=== PATIENT | female | born 1970 | race Caucasian/White ===

== ENCOUNTER 2022-09-11 11:55 | Outpatient (CLI) | payer OTHER, SELFPAY ==
--- NOTE | ~2022-09-11 | MM_ITS ---
EXAMINATION: MM screening danni BI w veronica HISTORY: Screening mammogram TECHNIQUE: Craniocaudal and mediolateral oblique 3-D tomosynthesis images were obtained and synthetic 2-D images were generated. CAD analysis was submitted and interpreted. COMPARISON: 07/26/2013 bilateral screening mammogram BREAST PARENCHYMAL COMPOSITION: The breasts are heterogeneously dense, which may obscure small masses . FINDINGS: There are bilateral breast masses. Bilateral diagnostic mammography and breast ultrasound e xamination are recommended. IMPRESSION: 1. Bilateral breast masses 2. Bilateral diagnostic mammography and breast ultrasound examination are recommended BI-RADS Category 0: Incomplete: Needs additional imaging evaluation. Reviewed, dictated and finalized at location A. IMPRESSION: 1. Bilateral breast masses 2. Bilateral diagnostic mammography and breast ultrasound examination are recom mended BI-RADS Category 0: Incomplete: Needs additional imaging evaluation.
--- NOTE | ~2022-09-11 | CT_ITS ---
CT Scan of the Chest without Contrast: Clinical Indication: Lung cancer screening, personal history of nicotine dependence Technique: Contiguous sections were acquired throughout the chest without intravenous contrast. Dose reduction technique was used on this scan by utilizing automated exposure control and iterative recon struction technique. The dose-length product (DLP) was 157.43 mGy-cm. Findings: There is no evidence of any significant mediastinal, hilar or axillary lymphadenopathy. The mediastin al soft tissues appear normal. There is no evidence of pleural or pericardial effusion. There is a 6 mm nodule in the right middle lobe (axial image 77). There is a 4 mm nodule in the right lower lobe (axial image 78). There is mild emphysematous change or interstitial degenerative change at the upper lobes. Images through the upper abdomen reveal no abnormalities. Impression: Lung RADS 3: Probably benign. Six-month follow-up screening CT advised. Reviewed, dictated and finalized at [facility]. Impression: Lung RADS 3: Probably benign. Six-month follow-up screening CT advised.
[2022-09-11 12:17] LABS: Basophils Absolute Auto 0.12 K/mm3 (0.00-0.10); Basophils Percent Auto 1.6 % (0.0-1.0); Eosinophils Absolute Auto 0.34 K/mm3 (0.02-0.50); Eosinophils Percent Auto 4.5 % (1.0-6.0); Hematocrit 47.8 % (35.0-49.0); Hemoglobin 16.5 g/dL (12.0-15.0); Immature Granulocyte Absolute 0.02 K/mm3 (0.00-0.00); Immature Granulocyte Percent A 0.3 % (0.0-0.0); Lymphocytes Absolute Auto 3.15 K/mm3 (1.10-4.50); Lymphocytes Percent Auto 41.7 % (18.0-42.0); Mean Corpuscular HGB Conc 34.5 g/dL (32.0-36.0); Mean Corpuscular Hemoglobin 32.2 pg (27.0-31.0); Mean Corpuscular Volume 93.4 fL (78.0-102.0); Mean Platelet Volume 9.5 fl (9.2-11.8); Monocytes Percent Auto 11.9 % (2.0-11.0); Platelet Count Result 301 K/mm3 (150-420); Red Blood Count 5.12 M/mm3 (4.20-5.40); Red Cell Distribution Width 12.6 % (11.6-14.4); White Blood Count 7.6 K/mm3 (4.8-10.8)
[2022-09-11 12:35] LABS: Appearance Urine Clear (Clear); Color Urine Light Yellow (Yellow); Protein Urine Negative (Negative)
[2022-09-11 12:36] LABS: Bilirubin Urine Negative (Negative); Blood Urine Negative (Negative); Glucose Urine UA Negative (Negative); Ketones Urine Negative (Negative); Leukocyte Esterase Ur Negative (Negative); Nitrate Urine Negative (Negative); Urobilinogen Urine 0.2 mg/dL (0.2-1.0)
[2022-09-11 12:38] LABS: Add Urine Microscopic? NO
[2022-09-11 13:18] LABS: Alanine Aminotransferase 34 U/L (14-59); Albumin Level 3.8 g/dL (3.4-5.0); Alkaline Phosphatase 78 U/L (46-116); Anion Gap 10 mmol/L (8-16); Aspartate Amino Transferase 16 U/L (15-37); Bilirubin,Total 0.4 mg/dL (0.00-1.00); Blood Urea Nitrogen 6 mg/dL (7-18); Carbon Dioxide 27 mmol/L (21-32); Chloride 104 mmol/L (98-108); Cholesterol 238 mg/dL (0-200); Estimated Glomerular Filt Rate > 60; Glucose 91 mg/dL (70-99); HDL Direct 36 mg/dL (40-60); LDL Cholesterol Calculated 145 mg/dL (<130); Osmolality Calculated 289 mOsm/kg (285-295); Potassium 4.3 mmol/L (3.5-5.1); Sodium 141 mmol/L (136-145); Thyroid Stimulating Hormone 1.42 uIU/mL (0.36-3.74); Total Protein 7.8 g/dL (6.4-8.2); Triglycerides 287 mg/dL (0-150)
== END 2022-09-11 11:56 | disposition home or self-care (01) ==
PROVIDERS: PCP Internal Medicine; Visit Provider Internal Medicine
DX: Z00.00 Encounter for general adult medical examination without abnormal findings (principal); M79.89 Other specified soft tissue disorders; Z12.31 Encounter for screening mammogram for malignant neoplasm of breast; Z87.891 Personal history of nicotine dependence; Z12.2 Encounter for screening for malignant neoplasm of respiratory organs; R91.8 Other nonspecific abnormal finding of lung field; R92.8 Other abnormal and inconclusive findings on diagnostic imaging of breast
CPT/HCPCS: 36415; 71271; 77063; 77067; 80053; 80061; 81003; 84443; 85025

== ENCOUNTER 2022-09-18 09:40 | Outpatient (CLI) | payer OTHER, SELFPAY ==
--- NOTE | ~2022-09-18 | US_ITS ---
EXAMINATION: US venous doppler [facility] DATE: 09/18/2022 10:33 INDICATION: Left lower limb swelling. TECHNIQUE: Grayscale ultrasound images without and with compression and Doppler ultrasound images of the bilateral lower extremity veins were obtained. COMPARISON: None. FINDINGS: The visualized portions of right common femoral vein, profunda (deep) femoral vein, femoral vein, pop liteal vein, peroneal veins, posterior tibial veins, and greater saphenous vein outflow are patent. The visualized portions of left common femoral vein, profunda femoral vein, femoral vein, popliteal v ein, peroneal veins, posterior tibial veins, and greater saphenous vein outflow are patent. IMPRESSION: 1. No deep venous thrombosis. Reviewed, dictated and finalized at location A.
== END 2022-09-18 09:41 | disposition home or self-care (01) ==
LOC: CHSIMG 09:41
PROVIDERS: PCP Internal Medicine; Visit Provider Internal Medicine
DX: M79.89 Other specified soft tissue disorders (principal)
CPT/HCPCS: 93970

== ENCOUNTER 2022-09-25 09:49 | Outpatient (CLI) | payer OTHER, SELFPAY ==
--- NOTE | ~2022-09-25 | MMUS_ITS ---
EXAMINATION: MM diagnostic danni BI w veronica, US breast BI limited HISTORY: Bilateral breast masses on screening mammogram TECHNIQUE: Additional 3-D tomosynthesis images of the breasts were performed and synthetic 2-D images were generated. CAD analysis was submitted and interpreted. High resolution limited bilateral breast ultrasound was performed. COMPARISON: 09/11/2022, 07/18/2013 FINDINGS: MAMMOGRAPHIC FINDINGS: Left breast: There is an approximately 1.4 cm oval, obscured, low density mass in the middle third of the inner breast at 9:00 location 7 cm from the nipple. Additional low density masses identified are stable to decreased in size when compared to prior mammograms. Right breast: There is an 8 mm oval, obscured, low density mass in the middle third of the outer crystal st at the 9:00 location. ULTRASOUND: Left breast: There is a 1.4 cm cyst at the 9:00 location 5 cm from the nipple at posterior depth oleksandr esponding to the mammographic finding in question. There is a 4 mm mass with an echogenic center at t he 10:00 location near the nipple with the appearance of an intramammary lymph node. No suspicious cy stic or solid mass is identified. Right breast: There is a 5 mm cyst at the 10:00 location of the breast. IMPRESSION: 1. No mammographic or sonographic evidence of malignancy. 2. Recommend routine screening mammography in one year. BI-RADS Category 2: Benign finding(s). Reviewed, dictated and finalized at location A. IMPRESSION: 1. No mammographic or sonographic evidence of malignancy. 2. Recommend routine screening mammography in one year. BI-RADS Category 2: Benign finding(s).
== END 2022-09-25 09:50 | disposition home or self-care (01) ==
LOC: CHSIMG 09:52
PROVIDERS: PCP Internal Medicine; Visit Provider Internal Medicine
DX: R92.8 Other abnormal and inconclusive findings on diagnostic imaging of breast (principal)
CPT/HCPCS: 76642; 77062; 77066; G0279

== ENCOUNTER 2023-11-23 10:16 | Outpatient (CLI) | payer OTHER, SELFPAY ==
--- NOTE | 2023-11-23 11:00 | NEURO_ITS ---
Impression: # Complains of numbness of hands. # Early, mild, sensory, left Carpal Tunnel Syndrome. # No Ulnar Neuropathy. # Needle Exam/ EMG normal. Nerve Conduction Studies Anti Sensory Summary Table Stim Site NR Peak (ms) P-T Amp (?V) Site1 Site2 Delta-P (ms) Dist (cm) Tylor (m/s) Left Median Anti Sensory (2-3nd Digit) Wrist 2.9 71.9 Wrist 2-3nd Digit 2.9 14.0 48 Wrist 3.0 73.9 Wrist 2-3nd Digit 2.9 14.0 48 Right Median Anti Sensory (2-3nd Digit) Wrist 3.1 17.6 Wrist 2-3nd Digit 3.1 14.0 45 Wrist 2.6 22.3 Wrist 2-3nd Digit 3.1 14.0 45 Left Radial Anti Sensory (Base 1st Digit) Wrist 1.7 42.8 Wrist Base 1st Digit 1.7 0.0 Right Radial Anti Sensory (Base 1st Digit) Wrist 2.3 23.5 Wrist Base 1st Digit 2.3 0.0 Left Ulnar Anti Sensory (5th Digit) Wrist 2.3 51.0 Wrist 5th Digit 2.3 14.0 61 Right Ulnar Anti Sensory (5th Digit) Wrist 2.2 56.4 Wrist 5th Digit 2.2 14.0 64 Motor Summary Table Stim Site NR Onset (ms) O-P Amp (mV) Site1 Site2 Delta-0 (ms) Dist (cm) Tylor (m/s) Left Median Motor (Abd Poll Brev) Wrist 2.6 6.5 Elbow Wrist 4.8 27.0 56 Elbow 7.4 5.1 Right Median Motor (Abd Poll Brev) Wrist 3.1 2.1 Elbow Wrist 5.5 28.0 51 Elbow 8.6 0.6 ELB/ADM Wrist 0.5 0.0 Left Ulnar Motor (Abd Dig Minimi) Wrist 2.0 4.6 A Elbow Wrist 5.0 28.0 56 A Elbow 7.0 4.2 Right Ulnar Motor (Abd Dig Minimi) Wrist 2.0 8.0 A Elbow Wrist 5.4 30.0 56 A Elbow 7.4 6.7 F Wave Studies NR F-Lat (ms) L-R F-Lat (ms) Left Median (Mrkrs) (Abd Poll Brev) 26.33 1.14 Right Median (Mrkrs) (Abd Poll Brev) 27.46 1.14 Left Ulnar (Mrkrs) (Abd Dig Min) 26.02 0.18 Right Ulnar (Mrkrs) (Abd Dig Min) 26.19 0.18 EMG Side Muscle Nerve Root Ins Act Fibs Amp Dur Recrt Comment Right 1stDorInt Ulnar C8-T1 Nml Nml Nml Nml Nml Right Ext Indicis Radial (Post Int) C7-8 Nml Nml Nml Nml Nml Right Ext Digitorum Radial (Post Int) C7-8 Nml Nml Nml Nml Nml Right BrachioRad Radial C5-6 Nml Nml Nml Nml Nml Right PronatorTeres Median C6-7 Nml Nml Nml Nml Nml Right Abd Poll Brev Median C8-T1 Nml Nml Nml Nml Nml Right ABD Dig Min Ulnar C8-T1 Nml Nml Nml Nml Nml Left 1stDorInt Ulnar C8-T1 Nml Nml Nml Nml Nml Left Ext Indicis Radial (Post Int) C7-8 Nml Nml Nml Nml Nml Left Ext Digitorum Radial (Post Int) C7-8 Nml Nml Nml Nml Nml Left BrachioRad Radial C5-6 Nml Nml Nml Nml Nml Left PronatorTeres Median C6-7 Nml Nml Nml Nml Nml Left Abd Poll Brev Median C8-T1 Nml Nml Nml Nml Nml Left ABD Dig Min Ulnar C8-T1 Nml Nml Nml Nml Nml MTDD
== END 2023-11-23 10:17 | disposition home or self-care (01) ==
LOC: ANHNEURO 10:21
PROVIDERS: PCP Internal Medicine; Visit Provider Plastic Surgery
DX: G56.02 Carpal tunnel syndrome, left upper limb (principal)
CPT/HCPCS: 95886; 95911

== ENCOUNTER 2024-06-26 14:48 | Outpatient (CLI) | payer OTHER, SELFPAY ==
--- NOTE | ~2024-06-26 | XR_ITS ---
AP view of the pelvis and AP and lateral views of the bilateral hips Clinical history: Pain Findings: No acute fracture or dislocation is seen. Osseous alignment is anatomic. Bilateral hip and SI joint spaces are preserved. Soft tissues are unremarkable. Impression: No significant abnormality is seen. Reviewed, dictated and finalized at location . Impression: No significant abnormality is seen.
[2024-06-26 15:15] LABS: Hematocrit 43.9 % (35.0-49.0); Mean Corpuscular HGB Conc 34.2 g/dL (32-36); Mean Corpuscular Hemoglobin 30.2 pg (27.0-31.0); Mean Corpuscular Volume 88.3 fL (78.0-102.0); Mean Platelet Volume 9.3 fl (9.2-11.8); Platelet Count Result 325 K/mm3 (150-420); Red Blood Count 4.97 M/mm3 (4.20-5.40); Red Cell Distribution Width 12.3 % (11.6-14.4); White Blood Count 7.7 K/mm3 (4.8-10.8)
[2024-06-26 15:17] LABS: Add Urine Microscopic? YES; Appearance Urine Clear (Clear); Bilirubin Urine Negative (Negative); Blood Urine Negative (Negative); Color Urine Yellow (Yellow); Glucose Urine UA Negative (Negative); Ketones Urine Negative (Negative); Leukocyte Esterase Ur Trace (Negative); Nitrate Urine Negative (Negative); Protein Urine Negative (Negative); Specific Grav Ur 1.015 (1.010-1.020); Urobilinogen Urine 0.2 mg/dL (0.2-1.0)
[2024-06-26 15:29] LABS: D Dimer 0.22 mg/L (0.19-0.50)
[2024-06-26 15:33] LABS: Bacteria Urine 1+ /hpf; RBC Urine 0-2 /hpf (0-2); Squamous Epithelial Cell Urine Many /hpf (Few); WBC Urine 0-3 /hpf (0-3)
[2024-06-26 15:58] LABS: Alanine Aminotransferase 43 U/L (14-59); Albumin Level 4.1 g/dL (3.4-5.0); Alkaline Phosphatase 87 U/L (46-116); Anion Gap 10 mmol/L (4-12); Aspartate Amino Transferase 24 U/L (15-37); Bilirubin,Total 0.5 mg/dL (0.00-1.00); Blood Urea Nitrogen 8 mg/dL (7-18); Calcium 9.1 mg/dL (8.5-10.1); Carbon Dioxide 26 mmol/L (21-32); Chloride 105 mmol/L (98-108); Creatine Kinase 225 U/L (26-192); Estimated Glomerular Filt Rate > 60; Glucose 106 mg/dL (70-99); Osmolality Calculated 290 mOsm/kg (285-295); Potassium 4.2 mmol/L (3.5-5.1); Sodium 141 mmol/L (136-145); Thyroid Stimulating Hormone 1.24 uIU/mL (0.36-3.74); Total Protein 7.6 g/dL (6.4-8.2)
[2024-06-26 16:04] LABS: CRP < 0.5 mg/dL (0.0-0.9)
--- OUTSIDE RECORDS SUMMARY | 2024-06-26 16:58 | XMS_ITS | Encounter Summary ---
Author Organization [facility] Address [address] [place] [address] Care Team Providers Care Project Admin Name Role Phone New Referring, Provider Primary Care Provider Un available Shane Roa MD Primary Care Provider [phone] Encounter Details Date Type Department Care Team (Late st Contact Info) Description 08/06/2018 Abstract [facility] CONVERSION [address] [place] [address] , Generic ConversionMD Social History Tobacco Use Types Packs/Day Years Used Date Smoking Tobacco: Never Assessed Comments No Sex and Gender Information Value Date Recorded Sex Assigned at Not on file Legal Sex Female 7:53 PM CDT Gender Identity Not on file Sexual Orientation Not on file documented as of this encounter Plan of Treatment Not on file documented as of this encounter Visit Diagnoses Not on filedocumented in this encounter Additional Health Concerns Infection Onset Date Last Indicated Resolved Time COVID-19 Rule Out 02/21/2020 02/21/2020 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
--- OUTSIDE RECORDS SUMMARY | 2024-06-26 16:58 | XMS_ITS | Encounter Summary ---
Author Organization [facility] Address [address] [place] [address] Care Team Providers Care Nanotechnology Technician Name Role Phone New Referring, Provider Primary Care Provider Un available Shane Roa MD Primary Care Provider [phone] Encounter Details Date Type Department Care Team (Late st Contact Info) Description 05/15/2017 Abstract [facility] CONVERSION [address] [place] [address] , Generic ConversionMD Social History Tobacco Use Types Packs/Day Years Used Date Smoking Tobacco: Never Assessed Comments Unknown Sex and Gender Information Value Date Recorded [...] Rule Out 02/21/2020 02/21/2020 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
--- OUTSIDE RECORDS SUMMARY | 2024-06-26 16:58 | XMS_ITS | Clinical Summary ---
Author Organization [facility] Address [address] [place] [address] Care Team Providers Care Shopper Insights Manager Name Role Phone Shane Roa MD Primary Care Provider [phone] Allergies Active Allergy Reactions Criticality Noted Date Comments Amoxicillin-Pot Clavulanate Rash Low 02/26/20 18 Medications montelukast 10 MG tabletIndicatio ns:breathing Take 10 mg by mouth nightly at bedtime. Indications: breathing 5 Active cetirizine 10 MG tabletIndicatio ns:Allergic Rhinitis Take 10 mg by mouth daily. Indications: Allergic Rhinitis Active sertraline 100 MG tabletIndicatio ns:Anxiety Take 100 mg by mouth daily. Indications: Feeling Anxious Active clonazePAM 0.5 MG tablet Take 0.5 mg by mouth 2 (two) times daily as needed for Anxiety. Active vitamin D3, cholecalciferol , (VITAMIN D-3) 10 MCG (400 UNIT) tabletIndicatio ns:Nutritional Support Take 400 Units by mouth daily. Indications: Nutritional Support Active Family History Medical History Relation Comments Breast Cancer Maternal Aunt age unknown Breast Cancer Maternal Grandmother age unknown Diabetes Mother Heart Disease Mother Relation Status Comments Maternal Aunt Maternal Grandmother Mother Alive Social History Tobacco Use Types Packs/Day Years Used Date Smoking Tobacco: Every Day Cigarettes Smokeless Tobacco: Never Alcohol Use Standard Drinks/Week Comments Yes 0 (1 standard drink = 0.6 oz pur e alcohol) rare glass of wine Comments No Sex and Gender Information Value Date Recorded Sex Assigned at Not on file Legal Sex Female 7:53 PM CDT Gender Identity Not on file Sexual Orientation Not on file Last Filed Vital Signs Vital Sign Reading Time Taken Comments Blood Pressure 132/76 07/12/2020 9:47 AM CDT Pulse 87 07/12/2020 9:47 AM CDT Temperature 36 C (96.8 F) 07/12/2020 8:12 AM CDT Respiratory Rate 18 07/12/2020 9:47 AM CDT Oxygen Saturation 97% 07/12/2020 9:47 AM CDT Inhaled Oxygen Concentration - - Weight 88.5 kg (195 lb) 07/08/2020 12:58 PM CDT Height 157.5 cm (5' 2 ) 07/08/2020 12:58 PM CDT Body Mass Index 35.67 07/08/2020 12:58 PM CDT Plan of Treatment Health Maintenance Due Date Last Done Comments Cervical Cancer Screening Pa p Smear (Age 30 to 64) Every 3 Years 1970 Colorectal Cancer Screening Colonoscopy (10 Years) 1970 Annual Physical 1973 Hepatitis C 1988 Hepatitis B Vaccines (1 of 3 - 19+ 3-dose series) 1989 Pneumococcal Vaccine: 50+ Ye ars (1 of 2 - PCV) 1989 Cervical Cancer Screening Pa p with HPV Testing (Age 30 to 64) Every 5 Years 2000 Cervical Cancer Screening with HPV 2000 Zoster Vaccines (1 of 2) 2020 Mammogram Screening 04/06/2021 04/06/2019 COVID-19 Vaccine ( - 2023-2 5 season) 2023 DTaP, Tdap and Td Vaccines ( 2 - Td or Tdap) 06/03/2025 06/04/2015 Meningococcal B Vaccine Aged Out No l onger eligible based on patient's age to complete this topic Meningococcal Vaccine Aged Out No patricia eduin eligible based on patient's age to complete this topic RSV Immunizations Under 20 Months Aged Out No longer eligible based on patient's age to complete this topic Procedures Procedure Name Priority Date/Time Associated Diagnosis Comments MG DIAGNOSTIC SAMMY DIGI Routine 04/06/2019 8:32 AM TRACKWALKER Nipple discharge Abnormal breast exam from Last 3 Months or Most Recently Relevant to Health Maintenance Results * MG DIAGNOSTIC SAMMY DIGI (04/06/2019 8:32 AM TRACKWALKER) Anatomical Region Laterality Modality Breast Bilateral Mammography, Rad iographic Imaging 04/06/2019 9:05 AM TRACKWALKER Impressions 04/06/2019 9:12 AM TRACKWALKER IMPRESSION: 1. Moderately dense breasts with no mammographically suspicious change since 07/26/2013. 2. No sonographically discrete or suspicious abnormality identified within the region of interest on the right. 3. Follow-up as described. Recommendation: 1: Routine screening mammogram Bilateral in 1 Year Overall assessment: ACR BI-RADS Category 2 - Benign. Return for Routine Follow-Up: Yes Interpreted By: Alton Mathews, 04/06/2019 9:05 AM Narrative 04/06/2019 9:12 AM TRACKWALKER Examination: Bilateral digital diagnostic mammogram with CAD. [id number] Clinical history: Intermittent clear to whitish nipple discharge on the right. Routine screening on the left. Comparison: 07/26/2013. Technique: Bilateral digital mammograms including spot compression imaging on the right.. The exam was interpreted with the use of a computer-aided detection (CAD) system. Additional 3-D Tomosynthesis images were acquired in the CC and MLO projections. Tissue density: The breast tissue is heterogeneously dense. Findings: There has been no suspicious change. The breasts again demonstrate mixed fat and moderately dense fibroglandular tissue. Benign-appearing calcification noted. No suspicious mass, microcalcification or area of architectural distortion can be identified including spot compression imaging of the subareolar region on the right. Examination: Right breast ultrasound. Technique: Grayscale images. Findings: Survey of the subareolar/periareolar region was performed encompassing the region of interest. This fails to demonstrate any discrete solid or cystic mass or abnormal appearing duct. Lamont appearing tissue architecture is demonstrated. Physical exam surveillance is advised. Should the discharge become bloody and freely expressible, consideration could be given to galactography or MRI. From a mammographic standpoint, routine follow-up in one year would seem adequate. These findings were discussed with the patient. Shane Roa MD MAMMO Final Result from Last 3 Months or Most Recently Relevant to Health Maintenance Insurance [employer] [facility] on file Advance Directives Documents on File Type Date Recorded Patient Numerical Analysis Group Manager Expl anation Legal Documents 11/28/2020 10:43 AM RECVD & CMPLTD ATTY REQ. FOR HB BILLS FOR [facility] FOR [facility] Care Teams Shopper Insights Manager Relationship Specialty Start Date End Date Shane Roa MD [address] [place] [address] PCP - General INTERNAL MEDICINE 02/21/20
--- OUTSIDE RECORDS SUMMARY | 2024-06-26 16:58 | XMS_ITS | Clinical Summary ---
Author Organization [facility] [employer] Address [address] [place] [address] Care Team Providers Care Game Author Name Role Phone Shane Roa MD Primary Care Provider [phone] Source Comments [facility] [employer],non-owned Affiliates and Associated Physician Practices is amultiple site organization consisting of ambulatory clinics and hospital sitesin [place], [place], [place] and [place]. This disclosure is being madepursuant to the Care Everywhere program and may not contain all information available regarding this patient. Last updated 17.[facility] [employer] Allergies Active Allergy Reactions Criticality Noted Date Comments Augmentin Rash Medium 02/18/2023 Medications * Be aware that medications may not be up to date on this document. Alwaysverify current medications with the patient. sertraline (Zoloft) 100 MG tablet Take 1 (one) tablet by mouth once daily Active montelukast (Singulair) 10 MG tablet Take 1 (one) tablet by mouth at bedtime Active vitamin D3 (Cholecalciferol) 25 MCG (1000 UNITS) tablet Take 2 (two) tablets by mouth once daily Active cetirizine (ZyrTEC) 10 MG chew tablet Take 1 (one) tablet by mouth once daily Active aspirin (Aspirin) 81 MG chew tablet Take 1 (one) tablet by mouth once daily 30 tablet 3 Active clopidogrel (Plavix) 75 MG tablet Take 1 (one) tablet by mouth once daily 90 tablet 3 5 Active metoprolol succinate XL 24hr (Toprol XL) 25 MG tablet Take 1 (one) tablet by mouth once daily 90 tablet 3 5 Active losartan (Cozaar) 50 MG tabletIndications :Essential hypertension Take 1 (one) tablet by mouth once daily 90 tablet 1 5 Active rosuvastatin (Crestor) 20 MG tablet Take 1 (one) tablet by mouth once daily 90 tablet 3 5 Active Active Problems Problem Noted Date Diagnosed Date DAHIANA (obstructive sleep apnea) 04/27/2023 Assessment & Plan (04/27/2023 1:58 PM FIXED ROUTE BUS OPERATOR): New Reviewed patient's sleep study results with her and her . Patient needs to choose DME company to fax order to. Strongly advised CPAP compliance. Essential hypertension 04/27/2023 Assessment & Plan (04/27/2023 1:57 PM FIXED ROUTE BUS OPERATOR): Improving Continue Losartan 50 mg daily Continue Toprol XL 25 mg daily Continue Low Sodium Diet Palpitations 04/27/2023 Assessment & Plan (04/27/2023 1:57 PM FIXED ROUTE BUS OPERATOR): Improving she is having less episodes. Reviewed Holter Monitor Results with patient. Could increase Toprol if the future if BP can tolerate to assist with symptoms. Tobacco use disorder 02/18/2023 Enlarged thyroid gland 02/18/2023 NSTEMI (non-ST elevated myocardial infarction) 1 04/20/2022 Assessment & Plan (04/27/2023 1:56 PM FIXED ROUTE BUS OPERATOR): Stable no chest pain Continue ASA 81 mg daily Continue Plavix 75 mg daily Continue Crestor 20 mg daily Social History Tobacco Use Types Packs/Day Years Used Date Smoking Tobacco: Former Cigarettes Smokeless Tobacco: Never Tobacco Cessation:Counseling Given: Not Answered Alcohol Use Standard Drinks/Week Comments Never 0 (1 standard drink = 0.6 oz pur e alcohol) AUDIT-C Answer Date Recorded Q1: How often do you have a drink containing alcohol? Never 02/17/2023 Q2: How many drinks containi ng alcohol do you have on a typical day when you are drinking? Patient does not drink Q3: How often do you have si x or more drinks on one occasion? Never 02/17/2023 Overall Financial Resource Strain (CARDIA) Answe r Date Recorded How hard is it for you to pa y for the very basics like food, housing, medical care, and heating? Not hard at all 02/17/2023 [facility] of Occupat ional Health - Occupational Stress Questionnaire Answer Date Recorded Do you feel stress - tense, restless, nervous, or anxious, or unable to sleep at night because your mind is troubled all the time - these days? Not at all 02/17/2023 Hunger Vital Sign Answer Date Recorded Within the past 12 months, y ou worried that your food would run out before you got the money to buy more. Never true 02/18/20 23 Within the past 12 months, t he food you bought just didn't last and you didn't have money to get more. Never true 02/17/2023 PRAPARE - Transportation Answer Date Re corded In the past 12 months, has l ack of transportation kept you from medical appointments or from getting medications? No 01/30 In the past 12 months, has l ack of transportation kept you from meetings, work, or from getting things needed for daily living? No 02/17/2023 Housing Stability Vital Sign Answer Rodrigo e Recorded In the last 12 months, was t here a time when you were not able to pay the mortgage or rent on time? No 02/17/2023 In the last 12 months, how many places have you lived? 1 02/17/2023 In the last 12 months, was t here a time when you did not have a steady place to sleep or slept in a retirement (including now)? No 02/17/2023 Comments Unknown Sex and Gender Information Value Date Recorded Sex Assigned at Not on file Legal Sex Female 1:16 PM FIXED ROUTE BUS OPERATOR Gender Identity Not on file Sexual Orientation Not on file Last Filed Vital Signs Vital Sign Reading Time Taken Comments Blood Pressure 130/73 12/28/2023 3:07 PM CDT Pulse 81 12/28/2023 3:07 PM CDT Temperature 35.9 C (96.7 F) 12/28/2023 3:07 PM CDT Respiratory Rate 20 02/19/2023 8:26 AM FIXED ROUTE BUS OPERATOR Oxygen Saturation 96% 12/28/2023 3:07 PM CDT Inhaled Oxygen Concentration - - Weight 106.1 kg (234 lb) 12/28/2023 3:07 PM CDT Height 157.5 cm (5' 2 ) 12/28/2023 3:07 PM CDT Body Mass Index 42.8 12/28/2023 3:07 PM CDT Plan of Treatment Upcoming Encounters Date Type Department Care Team (Late st Contact Info) Description 07/04/2024 2:00 PM CDT Office Visit [facility] [address], [address] [place] [id number] Kassie Reyes MD [address] [place] [address] Health Maintenance Due Date Last Done Comments COLOGUARD (AGES 45-75) - COLON CA SCREENING 1970 COLON MONITORING 1970 COLONOSCOPY - COLON CA SCREENING 1970 CT COLONOGRAPHY - COLON CA SCREENING 1970 Colorectal Cancer Screening 1970 FIT - COLON CA SCREENING 1970 FLEX SIG - COLON CA SCREENING 1970 PAP SMEAR 1970 HIV SCREENING 1985 HEPATITIS C SCREENING 04/03/1988 DTAP/TDAP/TD VACCINES (1 - Tdap) 1989 HEPATITIS B VACCINE (1 of 3 - 19+ 3-dose series) 1989 PNEUMOCOCCAL VACCINE 50+ (1 of 1 - PCV) 2020 ZOSTER VACCINE (1 of 2) 2020 MAMMOGRAM 04/06/2021 04/06/2019, 04/06/2019 COVID-19 VACCINE (1 - season) 2023 DEPRESSION SCREENING 03/01/2024 INFLUENZA VACCINE (Season Ended) 2024 SCREENING FOR DIABETES 02/19/2026 3, 02/18/2023, 02/17/2023, Additional history exists HIB VACCINE Aged Out No longer eligi ble based on patient's age to complete this topic HPV VACCINE Aged Out No longer eligi ble based on patient's age to complete this topic MENINGOCOCCAL (Group B) VACCINE SHARED DECISION-MAKING Aged Out No longer eligible based on patient's age to complete this topic MENINGOCOCCAL GROUPS A/C/Y/W VACCINE Aged Out No longer eligible based on patient's age to complete this topic Procedures Procedure Name Priority Date/Time Associated Diagnosis Comments BASIC METABOLIC PANEL (CALCIUM TOTAL) AM Draw 02/19/2023 4:38 AM FIXED ROUTE BUS OPERATOR from Last 3 Months or Most Recently Relevant to Health Maintenance Results * (ABNORMAL) BASIC METABOLIC PANEL (CALCIUM TOTAL) (02/19/2023 4:38 AM FIXED ROUTE BUS OPERATOR) [facility] Glucose 99 70 - 105 mg/dL 02/19/2023 5:08 AM [facility] Sodium 138 136 - 145 mmol/L 02/19/2023 5:08 AM [facility] Potassium 3.6 3.5 - 5.1 mmol/L 02/19/2023 5:08 AM [facility] Chloride 109(H) 98 - 107 mmol/L 02/19/2023 5:08 AM [facility] CO2 19(L) 22 - 29 mmol/L 02/19/2023 5:08 AM [facility] Calcium 8.7 8.4 - 10.4 mg/dL 02/19/2023 5:08 AM [facility] Anion Gap 10 6 - 16 mmol/L 02/19/2023 5:08 AM [facility] BUN 7 7 - 26 mg/dL 02/19/2023 5:08 AM [facility] Creatinine 0.69 0.57 - 1.11 mg/dL 02/19/2023 5:08 AM [facility] eGFR by CKD-EPI >90 >=90 mL/min/1.7 3 m2 02/19/2023 5:08 AM [facility] Blood BLOOD SPECIMEN / Unknown Lab Venipuncture / Unknown 02/19/2023 4:38 AM FIXED ROUTE BUS OPERATOR 02/19/2023 4:49 AM [facility] Sandy Lambert MD LAB - CHEMISTRY ORDERABLES Fin al Result [facility] [address] [place] [address] from Last 3 Months or Most Recently Relevant to Health Maintenance Insurance [employer] Advance Directives * Full Code (Latest Code Status on File) Date Activated Date Inactivated Comments 02/18/2023 11:12 AM 02/19/2023 12:35 PM * Full Code Date Activated Date Inactivated Comments 02/17/2023 7:46 PM 02/18/2023 11:12 AM Care Teams Game Author Relationship Specialty Start Date End Date Shane Roa MD [address] [place] [address] PCP - General Internal Medicine 02/18/23
--- OUTSIDE RECORDS SUMMARY | 2024-06-26 16:58 | XMS_ITS | Encounter Summary ---
Author Organization [facility] Address [address] [place] [address] Care Team Providers Care Property Site Manager Name Role Phone New Referring, Provider Primary Care Provider Un available Shane Roa MD Primary Care Provider [phone] Encounter Details Date Type Department Care Team (Late st Contact Info) Description 06/15/2019 [employer] Message [facility] Patient Accounts [address] [place] [address] [facility], [facility] Provider Notice regarding your past due balance Social History Tobacco Use Types Packs/Day Years [...] Rule Out 02/21/2020 02/21/2020 02/21/2020 1:41 PM WIRELESS NETWORK ENGINEER COVID-19 Rule Out 07/09/2020 07/09/2020 07/09/2020 7:41 PM CDT documented as of this encounter Care Teams Property Site Manager Relationship Specialty Start Date End Date New Referring, Provider PCP - General UNKNOWN PHYSICIAN SPECIALTY 02/25/18 02/20/20 Shane Roa MD [address] [place] [address] PCP - General INTERNAL MEDICINE 02/21/20 documented as of this encounter
== END 2024-06-26 14:49 | disposition home or self-care (01) ==
LOC: CHSLAB 14:50
PROVIDERS: PCP Internal Medicine; Visit Provider Internal Medicine
DX: M79.89 Other specified soft tissue disorders (principal); R10.30 Lower abdominal pain, unspecified
CPT/HCPCS: 36415; 73521; 80053; 81001; 82550; 84443; 85027; 85380; 86140

== ENCOUNTER 2024-07-07 14:45 | Outpatient (CLI) | payer OTHER, SELFPAY ==
--- OUTSIDE RECORDS SUMMARY | 2024-07-07 14:50 | XMS_ITS | Encounter Summary ---
Author Organization [facility] Address [address] [place] [id number] Care Team Providers Care Laminating Machine Operator Name Role Phone New Referring, Provider Primary Care Provider Un available Shane Roa MD Primary Care Provider Encounter Details Date Type Department Care Team (Late st Contact Info) Description 08/06/2018 Abstract [facility] CONVERSION [address] [place] [address] , Generic ConversionMD Social History Tobacco Use [...] Rule Out 02/21/2020 02/21/2020 02/21/2020 1:41 PM NAIL TECHNICIAN COVID-19 Rule Out 07/09/2020 07/09/2020 07/09/2020 7:41 PM CDT documented as of this encounter Care Teams Laminating Machine Operator Relationship Specialty Start Date End Date New Referring, Provider PCP - General UNKNOWN PHYSICIAN SPECIALTY 02/25/18 02/20/20 Shane Roa MD [address] [place] [address] PCP - General INTERNAL MEDICINE 02/21/20 documented as of this encounter
--- OUTSIDE RECORDS SUMMARY | 2024-07-07 14:50 | XMS_ITS | Clinical Summary ---
Author Organization [facility] Address [address] [place] [address] Care Team Providers Care Credit Clerk Name Role Phone Shane Roa MD Primary Care Provider [phone] [facility],non-owned Affiliates and Associated Physician Practices is amultiple site organization consisting of ambulatory clinics and hospital sitesin [place], [place], [place] and [place]. This disclosure is being madepursuant to the Care Everywhere program and may not contain all information available regarding this patient. Last updated 17.[facility] Allergies Active Allergy Reactions Criticality Noted Date [...] 04/27/2023 Assessment & Plan (04/27/2023 1:[address] TECHNICIAN): New Reviewed patient's sleep study results with her and her . Patient needs to choose DME company to fax order to. Strongly advised CPAP compliance. Essential hypertension 04/27/2023 Assessment & Plan (04/27/2023 1:[address] TECHNICIAN): Improving Continue Losartan 50 mg daily Continue Toprol XL 25 mg daily Continue Low Sodium Diet Palpitations 04/27/2023 Assessment & Plan (04/27/2023 1:[address] TECHNICIAN): Improving she is having less episodes. Reviewed Holter Monitor Results with patient. Could increase Toprol if the future if BP can tolerate to assist with symptoms. Tobacco use disorder 02/18/2023 Enlarged thyroid gland 02/18/2023 NSTEMI (non-ST elevated myocardial infarction) 1 04/20/2022 Assessment & Plan (04/27/2023 1:[address] TECHNICIAN): Stable no chest pain Continue ASA 81 [...] and heating? Not hard at all 02/17/2023 [facility] of Occupat ional Health - Occupational Stress [...] place to sleep or slept in a usp (including now)? No 02/17/2023 Comments Unknown Sex and Gender Information Value Date Recorded Sex Assigned at Not on file Legal Sex Female 1:[address] TECHNICIAN Gender Identity Not on file Sexual Orientation Not on file Last Filed Vital Signs Vital Sign Reading Time Taken Comments Blood Pressure 130/73 12/28/2023 3:07 PM CDT Pulse 81 12/28/2023 3:07 PM CDT Temperature 35.9 C (96.7 F) 12/28/2023 3:07 PM CDT Respiratory Rate 20 02/19/2023 8:[address] TECHNICIAN Oxygen Saturation 96% 12/28/2023 3:07 PM CDT Inhaled Oxygen Concentration - - Weight 106.1 kg (234 lb) 12/28/2023 3:07 PM CDT Height 157.5 cm (5' 2 ) 12/28/2023 3:07 PM CDT Body Mass Index 42.8 12/28/2023 3:07 PM CDT Plan of Treatment Upcoming Encounters Date Type Department Care Team (Late st Contact Info) Description 08/01/2024 1:10 PM CDT Office Visit [facility] [address], [address] [place] [phone] Kassie Reyes MD [address] [place] [address] Health Maintenance Due Date Last Done Comments [...] (CALCIUM TOTAL) AM Draw 02/19/2023 4:[address] TECHNICIAN from Last 3 Months or Most Recently Relevant to Health Maintenance Results * (ABNORMAL) BASIC METABOLIC PANEL (CALCIUM TOTAL) (02/19/2023 4:[address] TECHNICIAN) [facility] Glucose 99 70 - 105 mg/dL 02/19/2023 5:08 AM [facility] Sodium 138 136 - 145 mmol/L 02/19/2023 5:08 AM [facility] Potassium 3.6 3.5 - 5.1 mmol/L 02/19/2023 5:08 AM [facility] Chloride 109(H) 98 - 107 mmol/L 02/19/2023 5:08 AM [facility] CO2 19(L) 22 - 29 mmol/L 02/19/2023 5:08 AM [facility] Calcium 8.7 8.4 - 10.4 mg/dL 02/19/2023 5:08 AM [facility] Anion Gap 10 6 - 16 mmol/L 02/19/2023 5:08 AM [facility] BUN 7 7 - 26 mg/dL 02/19/2023 5:08 AM [facility] Creatinine 0.69 0.57 - 1.11 mg/dL 02/19/2023 5:08 AM [facility] eGFR by CKD-EPI >90 >=90 mL/min/1.7 3 m2 02/19/2023 5:08 AM [facility] Blood BLOOD SPECIMEN / Unknown Lab Venipuncture / Unknown 02/19/2023 4:[address] TECHNICIAN 02/19/2023 4:[address] [facility] Sandy Lambert MD LAB - CHEMISTRY ORDERABLES Fin al Result [facility] [address] [place] [address] from Last 3 Months or Most Recently Relevant to Health Maintenance Insurance [employer] Advance Directives * Full Code (Latest Code Status on File) Date Activated Date Inactivated Comments 02/18/2023 11:12 AM 02/19/2023 12:35 PM * Full Code Date Activated Date Inactivated Comments 02/17/2023 7:46 PM 02/18/2023 11:12 AM Care Teams Credit Clerk Relationship Specialty Start Date End Date Shane Roa MD [address] [place] [address] PCP - General Internal Medicine 02/18/23
--- OUTSIDE RECORDS SUMMARY | 2024-07-07 14:50 | XMS_ITS | Encounter Summary ---
Author Organization [facility] Address [address] [place] [address] Care Team Providers Care Protective Signal Installer Helper Name Role Phone New Referring, Provider Primary Care Provider Un available Shane Roa MD Primary Care Provider [phone] Encounter Details Date Type Department Care Team (Late st Contact Info) Description 05/15/2017 Abstract [facility] CONVERSION [address] [place] [address] , Generic ConversionMD Social History Tobacco Use [...] Rule Out 02/21/2020 02/21/2020 02/21/2020 1:41 PM MACHINE PACKAGING TECHNICIAN COVID-19 Rule Out 07/09/2020 07/09/2020 07/09/2020 7:41 PM CDT documented as of this encounter Care Teams Protective Signal Installer Helper Relationship Specialty Start Date End Date New Referring, Provider PCP - General UNKNOWN PHYSICIAN SPECIALTY 02/25/18 02/20/20 Shane Roa MD [address] [place] [address] PCP - General INTERNAL MEDICINE 02/21/20 documented as of this encounter
--- OUTSIDE RECORDS SUMMARY | 2024-07-07 14:50 | XMS_ITS | Clinical Summary ---
Author Organization [facility] Address [address] [place] [address] Care Team Providers Care Wood Filler Name Role Phone Shane Roa MD Primary Care Provider [phone] Allergies Active Allergy Reactions Criticality Noted Date [...] DIAGNOSTIC SAMMY DIGI Routine 04/06/2019 8:32 AM WARP TYING MACHINE TENDER Nipple discharge Abnormal breast exam from Last 3 Months or Most Recently Relevant to Health Maintenance Results * MG DIAGNOSTIC SAMMY DIGI (04/06/2019 8:32 AM WARP TYING MACHINE TENDER) Anatomical Region Laterality Modality Breast Bilateral Mammography, Rad iographic Imaging 04/06/2019 9:05 AM WARP TYING MACHINE TENDER Impressions 04/06/2019 9:12 AM WARP TYING MACHINE TENDER IMPRESSION: 1. Moderately dense breasts with no [...] 04/06/2019 9:05 AM Narrative 04/06/2019 9:12 AM WARP TYING MACHINE TENDER Examination: Bilateral digital diagnostic mammogram with CAD. [id number] Clinical history: Intermittent clear to whitish nipple [...] or cystic mass or abnormal appearing duct. [place] appearing tissue architecture is demonstrated. Physical exam [...] Health Maintenance Insurance [facility] on file Advance Directives Documents on File Type Date Recorded Patient Application Administrator Expl anation Legal Documents 11/28/2020 10:43 AM RECVD & CMPLTD ATTY REQ. FOR HB BILLS FOR [facility] FOR [facility] Care Teams Wood Filler Relationship Specialty Start Date End Date Shane Roa MD [address] [place] [address] PCP - General INTERNAL MEDICINE 02/21/20
--- OUTSIDE RECORDS SUMMARY | 2024-07-07 14:50 | XMS_ITS | Encounter Summary ---
Author Organization [facility] Address [address] [place] [address] Care Team Providers Care Box Closing Machine Operator Name Role Phone New Referring, Provider Primary Care Provider Un available Shane Roa MD Primary Care Provider [phone] Encounter Details Date Type Department Care Team (Late st Contact Info) Description 06/15/2019 [email or web address] Message [facility] Patient Accounts [address] [place] [address] [facility], [facility] Provider Notice regarding your past due [...] Rule Out 02/21/2020 02/21/2020 02/21/2020 1:41 PM THROW OUT CLERK COVID-19 Rule Out 07/09/2020 07/09/2020 07/09/2020 7:41 PM CDT documented as of this encounter Care Teams Box Closing Machine Operator Relationship Specialty Start Date End Date New Referring, Provider PCP - General UNKNOWN PHYSICIAN SPECIALTY 02/25/18 02/20/20 Shane Roa MD [address] [place] [address] PCP - General INTERNAL MEDICINE 02/21/20 documented as of this encounter
[2024-07-07 15:45] LABS: Creatine Kinase 94 U/L (26-192)
[2024-07-10 16:09] LABS: Aldolase 4.6 U/L (< OR = 8.1)
== END 2024-07-07 14:46 | disposition home or self-care (01) ==
PROVIDERS: PCP Internal Medicine; Visit Provider Internal Medicine
DX: R74.8 Abnormal levels of other serum enzymes (principal)
CPT/HCPCS: 36415; 82085; 82550